=== PATIENT | female | born 1950 | race Two or more races ===

== ENCOUNTER 2022-01-21 05:52 | Day surgery (SDC) | payer OTHER ==
[~2022-01-21 05:52] MED LIST: ATORVASTATIN CA20 MG; GLIMEPIRIDE2 M1; TIROSINT75 MCG; TIROSINT88 MCG
[2022-01-21] MEDS ORDERED: MACROBID 100 M100 MG PO (10:34)
[2022-01-21] MEDS ORDERED: ULTRACET PO (10:34)
== END 2022-01-21 14:00 | disposition home or self-care (01) ==
LOC: CIR.AMB 05:52
PROVIDERS: ATTEND Obstetrics & Gynecology Gynecology
DX: N81.5 Vaginal enterocele (principal); N81.6 Rectocele; Z20.822 Contact with and (suspected) exposure to COVID-19

== ENCOUNTER 2022-01-24 11:14 | Emergency (ER) | payer OTHER ==
[~2022-01-24] VITALS: Ht 149.9 cm; Wt 45.4 kg
[~2022-01-24 11:14] MED LIST changes: +MACROBID 100 M100 MG PO; +ULTRACET PO
[2022-01-24] MEDS ORDERED: ONDANSETRON ODT8 MG PO (19:30)
[2022-01-24] MEDS ORDERED: BUTALBIT-ACETA1 EACH PO (19:30)
== END 2022-01-24 19:42 | disposition home or self-care (01) ==
LOC: ER 11:14
DX: G97.1 Other reaction to spinal and lumbar puncture (principal); I10 Essential (primary) hypertension; E03.9 Hypothyroidism, unspecified